=== PATIENT | female | born 1995 | race Caucasian/White ===

== ENCOUNTER 2017-02-14 00:43 | Emergency (ER) | payer OTHER ==
[2017-02-14] MEDS ORDERED: ONDANSETRON 4 MG/2 ML VIAL ONE (00:47)
--- NOTE | 2017-02-14 00:50 | EDPHY ---
H & P Time Seen by Provider: 02/14/17 00:47 HPI/ROS: Chief Complaint: Intoxication, vomiting HPI: 21-year-old female brought in by EMS after a friend called for her vomiting. Patient admits that she has been drinking alcohol and using cocaine earlier. Is currently complaining of some nausea. Denies falling down or hitting her head. No chest pain or shortness of breath. Is awake and alert. ROS: 10 point Review of Systems is negative except as noted in the HPI. PMH: None Medications: None Allergies: No known drug allergies Social History: No smoking, occasional alcohol alcohol Family History: non-contributory Physical Exam: Gen: Awake, Alert, tearful HEENT: Nose: no rhinorrhea Eyes: PERRLA, EOMI Mouth: Moist mucosa Neck: Supple, no JVD Chest: nontender, lungs clear to auscultation Heart: S1, S2 normal, no murmur Abd: Soft, non-tender, no guarding Back: no CVA tenderness, no midline tenderness Ext: no edema, non-tender Skin: no rash Neuro: CN II-XII intact, Sensation grossly intact, Strength 5/5 in bilateral upper and lower extremities Constitutional: Initial Vital Signs Temperature (C) 36.7 C 02/14/17 00:50 Heart Rate 153 H 02/14/17 00:50 Respiratory Rate 24 H 02/14/17 00:50 Blood Pressure 130/93 H 02/14/17 00:50 O2 Sat (%) 95 02/14/17 00:50 O2 Delivery Mode Room Air Allergies/Adverse Reactions: No Known Allergies Allergy (Unverified 02/14/17 00:50) Home Medications: Medication Instructions Recorded NK [No Known Home Meds] 02/14/17 Medical Decision Making ED Course/Re-evaluation: Patient has been tachycardic but this has resolved with fluids and and Ativan. When sleeping her heart rate is in the 90s but she does bounce up to the 1 teens when she is awake. This then dropped back down the 90s. She is up and ambulating unassisted to the bathroom. No further vomiting. She has a sober ride. - Data Points Medications Given: Discontinued Medications Sodium Chloride (Ns) 1,000 mls @ 0 mls/hr IV ONCE ONE PRN Reason: Wide Open Stop: 02/14/17 01:03 Last Admin: 02/14/17 01:03 Dose: 1,000 mls Sodium Chloride (Ns) 1,000 mls @ 0 mls/hr IV ONCE ONE PRN Reason: Wide Open Stop: 02/14/17 03:02 Last Admin: 02/14/17 03:07 Dose: 1,000 mls Sodium Chloride (Ns) 1,000 mls @ 0 mls/hr IV ONCE ONE PRN Reason: Wide Open Stop: 02/14/17 05:39 Last Admin: 02/14/17 05:39 Dose: 1,000 mls Lorazepam (Ativan Injection) 2 mg IVP EDNOW ONE Stop: 02/14/17 01:17 Last Admin: 02/14/17 01:16 Dose: 2 mg Lorazepam (Ativan Injection) 2 mg IVP EDNOW ONE Stop: 02/14/17 02:49 Last Admin: 02/14/17 02:52 Dose: 2 mg Ondansetron HCl (Zofran) 4 mg IVP EDNOW ONE Stop: 02/14/17 01:03 Last Admin: 02/14/17 01:03 Dose: 4 mg Departure - Departure Disposition: Home, Routine, Self-Care Clinical Impression: Alcoholic intoxication, Polysubstance abuse Condition: Good Instructions: Alcohol Intoxication (ED) Additional Instructions: Please try to avoid binge drinking alcohol. Referrals: Patient,NotPresent [Unknown] - As per Instructions
[2017-02-14 00:54] VITALS: TEMP 98.1
[2017-02-14] MEDS ORDERED: ONDANSETRON 4 MG/2 ML VIAL IVP ONE (01:02)
[2017-02-14] MEDS ORDERED: NS 1,000 ML IV ONE ×3 (01:02→05:38)
[2017-02-14] MEDS ORDERED: LORazepam 2 MG/ML INJ ONE (01:10)
[2017-02-14] MEDS ORDERED: LORazepam 2 MG/ML INJ IVP ONE ×2 (01:16→02:48)
[2017-02-14 06:36] VITALS: BP 94/62; PULSE 107; RESP 18; O2SAT 98
== END 2017-02-14 06:41 | disposition home or self-care (01) ==
LOC: EDUNIT#
DX: F10.129 Alcohol abuse with intoxication, unspecified (principal); F19.10 Other psychoactive substance abuse, uncomplicated
CPT/HCPCS: 96374; J2060; J2405